=== PATIENT | male | born 1975 | race African-American/Black ===

== ENCOUNTER → 2016-11-01 | Outpatient (CLI) | payer OTHER ==
--- NOTE | 2016-11-01 15:36 | KCIC ---
INDICATION: Left groin pain and concern for hernia. TECHNIQUE: Targeted ultrasound of the area of concern was performed. No comparison is available. FINDINGS: No hernia is identified. Normal appearing inguinal lymph node with fatty notch is noted, 19 x 3 mm. IMPRESSION: Negative for inguinal hernia. Electronically signed by: Junaid Gregg MD (11/01/2016 3:33 PM)
== END | disposition home or self-care (01) ==
LOC: KCIC US 15:11
PROVIDERS: ATTEND Nurse Practitioner
DX: R10.30 Lower abdominal pain, unspecified (principal)
CPT/HCPCS: 76882